=== PATIENT | male | born 1925 | race Caucasian/White ===

== ENCOUNTER 2016-09-13 11:37 | Inpatient (IN) | payer MEDICAID ==
[~2016-09-13] VITALS: Ht 177.8 cm; Wt 87.5 kg
[2016-09-13 11:56] LABS: BASOPHILS % (AUTO) 0.3 % (0.0-2.0); DIFF TOTAL % 100 %; EOSINOPHILS # (AUTO) 0.2 /CMM (0.0-0.7); EOSINOPHILS % (AUTO) 1.9 % (0.0-6.0); HEMATOCRIT 46 % (39-51); HEMOGLOBIN 15.3 g/dL (13.5-17.5); LYMPHOCYTES # (AUTO) 2.1 /CMM (0.8-4.8); LYMPHOCYTES % (AUTO) 21.7 % (20.0-44.0); MEAN CORPUSCULAR HEMOGLOBIN 31 PG (26.0-33.0); MEAN CORPUSCULAR HGB CONC 34 g/dl (31.0-36.0); MEAN CORPUSCULAR VOLUME 91 fL (80-96); MONOCYTES # (AUTO) 0.7 /CMM (0.1-1.30); MONOCYTES % (AUTO) 7.8 % (2.0-12.0); NEUTROPHILS # (AUTO) 6.5 /CMM (1.8-8.9); NEUTROPHILS % (AUTO) 68.3 % (43.0-81.0); PLATELET COUNT (AUTO) 244 /CMM (150-450); RED BLOOD CELL COUNT(AUTO) 5.01 MIL/uL (4.5-6.0); WHITE BLOOD COUNT (AUTO) 9.5 K/uL (4.3-11.0)
[2016-09-13 12:14] LABS: INR 1.01 (0.87-1.13); PROTHROMBIN TIME 10.9 SECS (9.5-12.7)
[2016-09-13 12:16] LABS: ANION GAP 12 (5-14); CALCIUM, SERUM 8.4 mg/dL (8.5-10.1); CARBON DIOXIDE 27 mmol/L (21-32); CHLORIDE 104 mmol/L (98-107); CREATININE 0.7 mg/dL (0.6-1.3); GLUCOSE 135 mg/dL (74-106); POTASSIUM 3.3 mmol/L (3.5-5.1); SODIUM SERUM 140 mmol/L (136-145); TROPONIN I < 0.017 ng/mL (0.00-0.056); UREA NITROGEN, BLOOD 22 mg/dL (7-18)
[2016-09-13 12:22] LABS: ALANINE AMINOTRANSFERASE 12 U/L (12-78); ALBUMIN 3.2 g/dL (3.4-5.0); ASPARTATE AMINOTRANSFERASE 8 U/L (15-37); BILIRUBIN,DIRECT 0.3 mg/dL (0.0-0.2); BILIRUBIN,TOTAL 1.6 mg/dL (0.2-1.0); INDIRECT BILIRUBIN 1.3 mg/dL (0.0-1.1); TOTAL PROTEIN, SERUM 7.1 g/dL (6.4-8.2)
[2016-09-13] MEDS ORDERED: METF500T4 PO (13:23)
[2016-09-13] MEDS ORDERED: ALEN70TA45 PO (13:23)
[2016-09-13] MEDS ORDERED: SERT50TA12 PO (13:23)
[2016-09-13] MEDS ORDERED: MEMA10TA PO (13:23)
[2016-09-13] MEDS ORDERED: DONE10TA44 PO (13:23)
[2016-09-13] MEDS ORDERED: POTASSIUM CHLORIDE 20 MEQ TAB.PRT.SR PO ONE ×2 (14:00→15:03)
[2016-09-13] MEDS ORDERED: MAG HYDROX/AL HYDROX/SIMETH 30 ML UDC PO PRN (14:30)
[2016-09-13] MEDS ORDERED: ONDANSETRON HCL/PF 4 MG/2 ML VIAL IVP PRN (14:30)
[2016-09-13] MEDS ORDERED: HYDROCODONE/APAP 5/325MG 1 EACH TABLET PO PRN (14:30)
[2016-09-13] MEDS ORDERED: ACETAMINOPHEN 325 MG TABLET PO PRN (14:30)
[2016-09-13] MEDS ORDERED: MORPHINE SULFATE INJ 2 MG/ML DISP.SYRIN IV PRN (15:30)
[2016-09-13 15:37] LABS: KETONES,URINE 40 (NEGATIVE); LEUKOCYTE ESTERASE ,URINE Negative (NEGATIVE); PH,URINE 5.5 (5.0-8.0)
[2016-09-13 15:38] LABS: ADD UA MICROSCOPIC YES
[2016-09-13 15:56] LABS: ADD URINE CULTURE NO; RBC,URINE 0-2 /HPF (0-2); WBC,URINE 0-2 /HPF (0-3)
[2016-09-13 16:30] VITALS: BP 128/50
[2016-09-13] MEDS: METFORMIN 500 MG TABLET PO SCH (17:12)
[2016-09-13] MEDS ORDERED: DEXTROSE 50%-WATER 50 ML DISP.SYRIN IV PRN (17:30)
[2016-09-13] MEDS: BLOOD SUGAR DIAGNOSTIC 1 EACH STRIP IN SCH ×2 (18:14→22:04)
[2016-09-13] MEDS ORDERED: POTASSIUM CHLORIDE 10 MEQ TABLET.SA PO ONE (19:00)
[2016-09-13 20:00] VITALS: BP 125/75
[2016-09-13] MEDS: MAGNESIUM HYDROXIDE 30 ML UDC PO PRN (20:20)
[2016-09-14] MEDS: BLOOD SUGAR DIAGNOSTIC 1 EACH STRIP IN SCH ×4 (05:56→21:22)
[2016-09-14] MEDS ORDERED: ALENDRONATE 70 MG TABLET PO SCH (07:30)
[2016-09-14 08:00] VITALS: BP 123/64
[2016-09-14 08:39] LABS: BASOPHILS % (AUTO) 0.4 % (0.0-2.0); DIFF TOTAL % 100 %; EOSINOPHILS # (AUTO) 0.1 /CMM (0.0-0.7); EOSINOPHILS % (AUTO) 1.4 % (0.0-6.0); HEMATOCRIT 45 % (39-51); LYMPHOCYTES # (AUTO) 1.9 /CMM (0.8-4.8); LYMPHOCYTES % (AUTO) 19.7 % (20.0-44.0); MEAN CORPUSCULAR HEMOGLOBIN 31 PG (26.0-33.0); MEAN CORPUSCULAR HGB CONC 33 g/dl (31.0-36.0); MEAN CORPUSCULAR VOLUME 91 fL (80-96); MONOCYTES # (AUTO) 0.8 /CMM (0.1-1.30); MONOCYTES % (AUTO) 8.7 % (2.0-12.0); NEUTROPHILS # (AUTO) 6.8 /CMM (1.8-8.9); NEUTROPHILS % (AUTO) 69.8 % (43.0-81.0); PLATELET COUNT (AUTO) 243 /CMM (150-450); WHITE BLOOD COUNT (AUTO) 9.8 K/uL (4.3-11.0)
[2016-09-14] MEDS: SERTRALINE HCL 50 MG TABLET PO SCH (08:39)
[2016-09-14] MEDS: DONEPEZIL 5 MG TABLET PO SCH (08:40)
[2016-09-14] MEDS: MEMANTINE HCL 5 MG TABLET PO SCH (08:40)
[2016-09-14] MEDS: METFORMIN 500 MG TABLET PO SCH ×3 (08:40→17:14)
[2016-09-14 08:43] LABS: CALCIUM, SERUM 8.6 mg/dL (8.5-10.1); CREATININE 0.6 mg/dL (0.6-1.3); PHOSPHORUS 2.7 mg/dL (2.5-4.9); POTASSIUM 4.4 mmol/L (3.5-5.1)
[2016-09-14] MEDS: INSULIN REGULAR, HUMAN 100 UNIT/ML 3 ML VIAL SQ PRN ×2 (11:48→21:32)
[2016-09-14] MEDS ORDERED: IV SET PRIMARY PUMP SET 1 EA INFUS.SET MC ONE (12:04)
[2016-09-14] MEDS: IV NS 0.9% 1,000 ML IV PRN ×2 (12:08→21:16)
[2016-09-14 16:00] VITALS: BP 122/64
[2016-09-14 20:00] VITALS: BP_SYST 139; BP_SYST 154; BP_DIAS 76; BP_DIAS 87
[2016-09-14 20:04] VITALS: BP_SYST 113; BP_SYST 123; BP_DIAS 56; BP_DIAS 59
[2016-09-14 22:00] VITALS: BP 123/59
[2016-09-14] MEDS: MAGNESIUM HYDROXIDE 30 ML UDC PO PRN (22:42)
[2016-09-15] MEDS: IV NS 0.9% 1,000 ML IV PRN (05:39)
[2016-09-15] MEDS: Z GUARD REMEDY 2 OZ OINT TP PRN ×2 (05:39→21:28)
[2016-09-15] MEDS: BLOOD SUGAR DIAGNOSTIC 1 EACH STRIP IN SCH ×4 (06:19→21:16)
[2016-09-15] MEDS: INSULIN REGULAR, HUMAN 100 UNIT/ML 3 ML VIAL SQ PRN ×3 (06:35→21:28)
[2016-09-15 08:00] VITALS: BP 142/78
[2016-09-15 08:02] LABS: BASOPHILS % (AUTO) 0.2 % (0.0-2.0); DIFF TOTAL % 100 %; EOSINOPHILS # (AUTO) 0.2 /CMM (0.0-0.7); EOSINOPHILS % (AUTO) 1.8 % (0.0-6.0); HEMATOCRIT 40 % (39-51); HEMOGLOBIN 13.6 g/dL (13.5-17.5); LYMPHOCYTES # (AUTO) 1.9 /CMM (0.8-4.8); LYMPHOCYTES % (AUTO) 22.9 % (20.0-44.0); MEAN CORPUSCULAR HEMOGLOBIN 31 PG (26.0-33.0); MEAN CORPUSCULAR HGB CONC 34 g/dl (31.0-36.0); MEAN CORPUSCULAR VOLUME 92 fL (80-96); MONOCYTES # (AUTO) 0.6 /CMM (0.1-1.30); MONOCYTES % (AUTO) 7.1 % (2.0-12.0); NEUTROPHILS # (AUTO) 5.6 /CMM (1.8-8.9); PLATELET COUNT (AUTO) 250 /CMM (150-450); RED BLOOD CELL COUNT(AUTO) 4.38 MIL/uL (4.5-6.0); WHITE BLOOD COUNT (AUTO) 8.2 K/uL (4.3-11.0)
[2016-09-15] MEDS ORDERED: BUPIVACAINE 0.5 % PF 150 MG/30 ML VIAL ONE (08:06)
[2016-09-15] MEDS ORDERED: BACITRACIN 50000 UNITS/VIAL ONE (08:07)
[2016-09-15 08:25] LABS: ALBUMIN 2.8 g/dL (3.4-5.0); BILIRUBIN,TOTAL 1.1 mg/dL (0.2-1.0); CALCIUM, SERUM 7.8 mg/dL (8.5-10.1); CREATININE 0.6 mg/dL (0.6-1.3); PHOSPHORUS 3.1 mg/dL (2.5-4.9); POTASSIUM 4.2 mmol/L (3.5-5.1); TOTAL PROTEIN, SERUM 6.3 g/dL (6.4-8.2)
[2016-09-15] MEDS: MEMANTINE HCL 5 MG TABLET PO SCH (08:41)
[2016-09-15] MEDS: METFORMIN 500 MG TABLET PO SCH ×3 (08:41→16:58)
[2016-09-15] MEDS: DONEPEZIL 5 MG TABLET PO SCH (08:41)
[2016-09-15] MEDS: SERTRALINE HCL 50 MG TABLET PO SCH (08:42)
[2016-09-15] MEDS ORDERED: ALBUTEROL FS 2.5 MG/3 ML VIAL.NEB ONE (09:13)
[2016-09-15] MEDS ORDERED: IV SET PRIMARY PUMP SET 1 EA INFUS.SET MC ONE (12:48)
[2016-09-15] MEDS: IV LR 1000 ML 1,000 ML IV PRN (12:55)
[2016-09-15] MEDS ORDERED: COLACE 250 MG CAPSULE PO PRN (13:00)
[2016-09-15] MEDS ORDERED: ZOFRAN 4mg/2ML IV PRN (13:00)
[2016-09-15] MEDS ORDERED: DULCOLAX 10 MG/SUPP.RECT RC PRN (13:00)
[2016-09-15] MEDS ORDERED: TYLENOL 650 MG TABLET PO PRN (13:00)
[2016-09-15] MEDS ORDERED: HYDROCODONE/APAP 5/325MG 1 EACH TABLET PO PRN (13:00)
[2016-09-15] MEDS ORDERED: SENOKOT 8.6 MG TABLET PO PRN (13:00)
[2016-09-15] MEDS ORDERED: AMBIEN 5 MG TABLET PO PRN (13:00)
[2016-09-15] MEDS: HYDROMORPHONE 1 MG/1 ML DISP.SYRIN IV PRN (15:56)
[2016-09-15 16:00] VITALS: BP 154/77
[2016-09-15] MEDS ORDERED: BISACODYL (5 MG) 5 MG TABLET.DR PO PRN (16:30)
[2016-09-15] MEDS: DOCUSATE SODIUM 100 MG CAPSULE PO SCH (16:58)
[2016-09-15 20:00] VITALS: BP 124/59
[2016-09-15 20:04] VITALS: BP 122/68
[2016-09-15] MEDS: POLYETHYLENE GLYCOL 3350 17 GM POWD.PACK PO SCH (21:16)
[2016-09-15 22:00] VITALS: BP 124/59
[2016-09-16] MEDS: IV LR 1000 ML 1,000 ML IV PRN (00:28)
[2016-09-16] MEDS: HYDROMORPHONE 1 MG/1 ML DISP.SYRIN IV PRN (04:50)
[2016-09-16] MEDS: BLOOD SUGAR DIAGNOSTIC 1 EACH STRIP IN SCH ×4 (06:17→21:34)
[2016-09-16] MEDS: INSULIN REGULAR, HUMAN 100 UNIT/ML 3 ML VIAL SQ PRN ×3 (06:25→21:38)
[2016-09-16 06:48] LABS: BASOPHILS % (AUTO) 0.5 % (0.0-2.0); DIFF TOTAL % 100 %; EOSINOPHILS # (AUTO) 0.4 /CMM (0.0-0.7); HEMATOCRIT 36 % (39-51); HEMOGLOBIN 12.3 g/dL (13.5-17.5); LYMPHOCYTES # (AUTO) 1.5 /CMM (0.8-4.8); LYMPHOCYTES % (AUTO) 15.6 % (20.0-44.0); MEAN CORPUSCULAR HEMOGLOBIN 31 PG (26.0-33.0); MEAN CORPUSCULAR HGB CONC 34 g/dl (31.0-36.0); MEAN CORPUSCULAR VOLUME 92 fL (80-96); MONOCYTES # (AUTO) 0.6 /CMM (0.1-1.30); MONOCYTES % (AUTO) 5.9 % (2.0-12.0); NEUTROPHILS # (AUTO) 7.1 /CMM (1.8-8.9); PLATELET COUNT (AUTO) 230 /CMM (150-450); RED BLOOD CELL COUNT(AUTO) 3.94 MIL/uL (4.5-6.0); WHITE BLOOD COUNT (AUTO) 9.6 K/uL (4.3-11.0)
[2016-09-16 06:57] LABS: ALBUMIN 2.6 g/dL (3.4-5.0); BILIRUBIN,TOTAL 1.4 mg/dL (0.2-1.0); CALCIUM, SERUM 7.9 mg/dL (8.5-10.1); CREATININE 0.7 mg/dL (0.6-1.3); PHOSPHORUS 3.3 mg/dL (2.5-4.9); POTASSIUM 4.4 mmol/L (3.5-5.1)
[2016-09-16 08:00] VITALS: BP 142/72
[2016-09-16] MEDS ORDERED: EXTENSION IV SET 1 EA INFUS.SET MC ONE (09:57)
[2016-09-16] MEDS ORDERED: SECONDARY IV SET 1 EA INFUS.SET MC ONE (09:57)
[2016-09-16] MEDS: Magnesium 1GM/D5W 100ML PREMIX 100 ML IV SCH ×2 (10:12→11:24)
[2016-09-16] MEDS: DONEPEZIL 5 MG TABLET PO SCH (10:13)
[2016-09-16] MEDS: DOCUSATE SODIUM 100 MG CAPSULE PO SCH ×3 (10:14→17:52)
[2016-09-16] MEDS: MEMANTINE HCL 5 MG TABLET PO SCH (10:14)
[2016-09-16] MEDS: SENNOSIDES/DOCUSATE SODIUM 1 TAB TABLET PO PRN (10:14)
[2016-09-16] MEDS: METFORMIN 500 MG TABLET PO SCH ×3 (10:14→17:52)
[2016-09-16] MEDS: SERTRALINE HCL 50 MG TABLET PO SCH (10:14)
[2016-09-16] MEDS: RIVAROXABAN 10 MG TABLET PO SCH (10:18)
[2016-09-16] MEDS ORDERED: IV NS 0.9% 1,000 ML ONE (14:41)
[2016-09-16 16:00] VITALS: BP 129/67
[2016-09-16 20:00] VITALS: BP 116/58
[2016-09-16 20:26] VITALS: BP 116/58
[2016-09-16] MEDS: POLYETHYLENE GLYCOL 3350 17 GM POWD.PACK PO SCH (21:27)
[2016-09-17] MEDS ORDERED: IV NS 0.9% 0 ML ONE (00:14)
[2016-09-17] MEDS: BLOOD SUGAR DIAGNOSTIC 1 EACH STRIP IN SCH ×4 (05:24→20:54)
[2016-09-17 08:00] VITALS: BP 139/94
[2016-09-17] MEDS: METFORMIN 500 MG TABLET PO SCH ×3 (08:21→16:25)
[2016-09-17] MEDS: LACTULOSE 10 G/15 ML UDC (PYXIS) PO PRN ×2 (08:21→16:24)
[2016-09-17] MEDS: DOCUSATE SODIUM 100 MG CAPSULE PO SCH ×3 (08:22→16:25)
[2016-09-17] MEDS: MEMANTINE HCL 5 MG TABLET PO SCH (08:22)
[2016-09-17] MEDS: DONEPEZIL 5 MG TABLET PO SCH (08:22)
[2016-09-17] MEDS: SERTRALINE HCL 50 MG TABLET PO SCH (08:22)
[2016-09-17 10:02] LABS: BASOPHILS % (AUTO) 0.4 % (0.0-2.0); DIFF TOTAL % 100 %; EOSINOPHILS # (AUTO) 0.3 /CMM (0.0-0.7); EOSINOPHILS % (AUTO) 3.5 % (0.0-6.0); HEMATOCRIT 38 % (39-51); HEMOGLOBIN 12.5 g/dL (13.5-17.5); LYMPHOCYTES # (AUTO) 1.6 /CMM (0.8-4.8); LYMPHOCYTES % (AUTO) 15.8 % (20.0-44.0); MEAN CORPUSCULAR HEMOGLOBIN 30 PG (26.0-33.0); MEAN CORPUSCULAR HGB CONC 33 g/dl (31.0-36.0); MEAN CORPUSCULAR VOLUME 92 fL (80-96); MONOCYTES # (AUTO) 0.7 /CMM (0.1-1.30); MONOCYTES % (AUTO) 7.1 % (2.0-12.0); NEUTROPHILS # (AUTO) 7.3 /CMM (1.8-8.9); NEUTROPHILS % (AUTO) 73.2 % (43.0-81.0); PLATELET COUNT (AUTO) 265 /CMM (150-450); RED BLOOD CELL COUNT(AUTO) 4.13 MIL/uL (4.5-6.0)
[2016-09-17] MEDS: HYDROMORPHONE 1 MG/1 ML DISP.SYRIN IV PRN (11:07)
[2016-09-17] MEDS: MECLIZINE HCL 25 MG TABLET PO SCH ×3 (12:06→23:43)
[2016-09-17] MEDS: SENNOSIDES/DOCUSATE SODIUM 1 TAB TABLET PO PRN (12:06)
[2016-09-17] MEDS: INSULIN REGULAR, HUMAN 100 UNIT/ML 3 ML VIAL SQ PRN ×2 (12:11→20:58)
[2016-09-17 16:00] VITALS: BP 116/63
[2016-09-17] MEDS: RIVAROXABAN 10 MG TABLET PO SCH (16:31)
[2016-09-17 20:00] VITALS: BP_SYST 154; BP_DIAS 64; BP_DIAS 65
[2016-09-17] MEDS: POLYETHYLENE GLYCOL 3350 17 GM POWD.PACK PO SCH (20:59)
[2016-09-18] MEDS: BLOOD SUGAR DIAGNOSTIC 1 EACH STRIP IN SCH ×3 (05:11→17:18)
[2016-09-18] MEDS: MECLIZINE HCL 25 MG TABLET PO SCH ×3 (05:14→17:12)
[2016-09-18] MEDS: HYDROCODONE/APAP 5/325MG 1 EACH TABLET PO PRN ×2 (05:18→09:23)
[2016-09-18 08:00] VITALS: BP 118/71
[2016-09-18] MEDS: METFORMIN 500 MG TABLET PO SCH ×3 (09:20→17:11)
[2016-09-18] MEDS: DOCUSATE SODIUM 100 MG CAPSULE PO SCH ×3 (09:20→16:39)
[2016-09-18] MEDS: MEMANTINE HCL 5 MG TABLET PO SCH (09:21)
[2016-09-18] MEDS: DONEPEZIL 5 MG TABLET PO SCH (09:21)
[2016-09-18] MEDS: SERTRALINE HCL 50 MG TABLET PO SCH (09:22)
[2016-09-18] MEDS: INSULIN REGULAR, HUMAN 100 UNIT/ML 3 ML VIAL SQ PRN (12:07)
[2016-09-18 16:00] VITALS: BP 118/72
[2016-09-18] MEDS: RIVAROXABAN 10 MG TABLET PO SCH (17:12)
== END 2016-09-18 20:25 | disposition home health service (06) | DRG 308 ==
LOC: ER 11:39 → MED 15:07
PROVIDERS: ADMIT Family Medicine; ATTEND Family Medicine
PROC: 0QS606Z Reposition Right Upper Femur with Intramedullary Internal Fixation Device, Open Approach (ICD-10-PCS; principal; 2016-09-15 09:20)
DX: M80.851A Other osteoporosis with current pathological fracture, right femur, initial encounter for fracture (principal); S72.144A Nondisplaced intertrochanteric fracture of right femur, initial encounter for closed fracture; G93.40 Encephalopathy, unspecified; E88.09 Other disorders of plasma-protein metabolism, not elsewhere classified; F03.90 Unspecified dementia, unspecified severity, without behavioral disturbance, psychotic disturbance, mood disturbance, and anxiety; E44.1 Mild protein-calorie malnutrition; E83.42 Hypomagnesemia; E11.9 Type 2 diabetes mellitus without complications; E83.51 Hypocalcemia; W18.30XA Fall on same level, unspecified, initial encounter; Y92.009 Unspecified place in unspecified non-institutional (private) residence as the place of occurrence of the external cause; E87.6 Hypokalemia; F32.9 Major depressive disorder, single episode, unspecified; K59.00 Constipation, unspecified; W19.XXXA Unspecified fall, initial encounter; Y93.9 Activity, unspecified; Y99.9 Unspecified external cause status; R42 Dizziness and giddiness; Z68.27 Body mass index [BMI] 27.0-27.9, adult
CPT/HCPCS: 36415; 71010-TC; 72170-TC; 73501; 73590-TC; 80048-TC; 80053-TC; 80061-TC; 80076-TC; 81000-TC; 82962-TC; 83735-TC; 84100-TC; 84484-TC; 85025-TC; 85730-TC; 86850-TC; 87081-TC; 92521; 93307-TC; 93880-TC; 97001-TC; 97003-TC; 97110-TC; 97112-TC; 97530-TC; A4606; A6209; A6402; C1713; J1170; J1815; J3475; J3490; J7030; J7120; J8597; L1830; Z7610